=== PATIENT | male | born 1945 | race Caucasian/White ===

== ENCOUNTER 2017-01-31 05:29 | Day surgery (SDC) | payer MEDICARE, BC ==
[2017-01-31] MEDS ORDERED: fentaNYL 100 MCG/2 ML SDV IV ONE ×3 (05:30→06:28)
[2017-01-31] MEDS ORDERED: Midazolam 1 MG/ML 2 ML SDV IV ONE ×5 (05:30→06:31)
[2017-01-31] MEDS ORDERED: Dextrose 5%-0.45% NaCl 1,000 ML IV SCH (06:00)
[2017-01-31] MEDS ORDERED: Sodium Chloride 0.9% 10 ML Syringe FLUSH PRN (06:00)
[2017-01-31] MEDS ORDERED: Midazolam 1 MG/ML 2 ML SDV ONE (06:18)
[2017-01-31] MEDS ORDERED: fentaNYL 100 MCG/2 ML SDV ONE (06:18)
--- NOTE | 2017-01-31 07:25 | OR ---
DATE: PROCEDURE: Total colonoscopy, NBI, and cold snare polypectomy. INSTRUMENT USED: CF-H180AL Olympus video colonoscope. PREMEDICATIONS: Fentanyl 100 mcg intravenous, Versed 3 mg intravenous. Nasal 2 L O2 cannula. The procedure was done under pulse oximetry, BP recording, and conveyor monitor. INDICATION: The patient with previous colonic tubular adenoma. Surveillance colonoscopic examination is done for detection of any polypoid lesions and removal, endoscopic hemostasis therapy if needed. DESCRIPTION OF PROCEDURE: Initial rectal exam was unremarkable. Rigid anoscopy was normal. The colonoscope was passed with ease. Scattered diverticula were noted in the distal left colon. The colon was found to be redundant and tortuous. The scope was passed with ease up to the ileocecal area, photographs were taken of the cecum showing 5 mm sized benign-appearing sessile polyps, NBI views were obtained. Cold snare polypectomy was done, the tissues were retrieved and sent for histopathology. No bleeding was noted from any of the visualized areas at the completion of examination. No stricture. No vascular ectasia. No large isolated ulcerations seen. No evidence of diffuse inflammatory bowel disease in the form of friability, contact bleeding, or ulcerations. Probing the proximal sides of folds and flexures using adequate distention and clearing of the stool material, withdrawal of the scope was made, cecum to rectum, time over 6 minutes. No bleeding was noted from any of the visualized areas at the completion of examination. IMPRESSION: 1. Diverticulosis. 2. Cecal polyp. The patient tolerated the procedure well. [facility] /[id number]
[2017-01-31 10:52] VITALS: BP 103/39
== END 2017-01-31 09:03 | disposition home or self-care (01) ==
LOC: DL.ENDO 05:29
PROVIDERS: ATTEND Internal Medicine Gastroenterology
DX: Z12.11 Encounter for screening for malignant neoplasm of colon (principal); D12.0 Benign neoplasm of cecum; K57.30 Diverticulosis of large intestine without perforation or abscess without bleeding; Z85.038 Personal history of other malignant neoplasm of large intestine; I10 Essential (primary) hypertension; E66.9 Obesity, unspecified; I25.10 Atherosclerotic heart disease of native coronary artery without angina pectoris; E78.00 Pure hypercholesterolemia, unspecified; Z98.84 Bariatric surgery status; Z95.1 Presence of aortocoronary bypass graft
CPT/HCPCS: 45385; J2250; J3010; J7042; 88305

== ENCOUNTER 2024-09-28 14:04 | Emergency (ER) | payer MEDICARE, BC ==
[2024-09-28 14:55] LABS: BASOPHILS PERCENT AUTO 0.4 % (0.0-1.0); EOSINOPHILS PERCENT AUTO 0.8 % (1.0-3.0); HEMATOCRIT 35.9 % (40.0-54.0); HEMOGLOBIN 11.2 g/dL (14.0-18.0); LYMPHOCYTES PERCENT AUTO 10.8 % (20.5-50.1); MEAN CORPUSCULAR HEMOGLOBIN 25.2 pg (27.0-34.0); MEAN CORPUSCULAR HGB CONC 31.2 g/dL (33.0-35.0); MEAN CORPUSCULAR VOLUME 80.7 fL (80-100); MONOCYTES PERCENT AUTO 12.1 % (2-8); NEUTROPHILS PERCENT AUTO 75.9 % (42.2-75.2); PLATELET COUNT,PLT 287 10^3/uL (150-450); RED BLOOD CELL COUNT 4.45 10^6/uL (4.6-6.2); WHITE BLOOD CELL COUNT,WBC 10.3 10^3/uL (5.0-10.0)
[2024-09-28 15:08] LABS: ALANINE AMINOTRANSFERASE,ALT 17 U/L (16-63); ALBUMIN 3.1 g/dL (3.4-5.0); ALKALINE PHOSPHATASE 111 U/L (46-116); ANION GAP 14.3 mEq/L (7-13); ASPARTATE AMNIOTRANSFERASE,AST 13 U/L (15-37); BILIRUBIN TOTAL 0.5 mg/dL (0.2-1.0); BLOOD UREA NITROGEN,BUN 24 mg/dL (7-18); BUN/CREATININE RATIO 18.9 (No establ ref range); CALCIUM 9.4 mg/dL (8.5-10.1); CARBON DIOXIDE,CO2 27 mmol/L (21-32); CHLORIDE,CL 108 mmol/L (98-107); CREATININE 1.27 mg/dL (0.70-1.30); GLUCOSE RANDOM 102 mg/dL (70-99); MAGNESIUM 2.1 mg/dL (1.8-2.4); POTASSIUM,K 4.3 mmol/L (3.5-5.1); PROTEIN TOTAL,TP 7.1 g/dL (6.4-8.2); SODIUM,NA 145 mmol/L (136-145)
[2024-09-28 15:13] LABS: B-TYPE NATRIURETIC PEPTIDE,BNP 538 pg/ml (0-100)
[2024-09-28 15:14] LABS: A/G RATIO 0.78; ESTIMATED GFR 57 mL/min (>=60)
[2024-09-28] MEDS: Furosemide 40 MG/4 ML VIAL IVPUSH ONE (15:22)
[2024-09-28 15:25] VITALS: BP 169/79; PULSE 65
== END 2024-09-28 15:53 | disposition home or self-care (01) ==
LOC: DL.ED 14:04
DX: I11.0 Hypertensive heart disease with heart failure (principal); I50.9 Heart failure, unspecified; E78.00 Pure hypercholesterolemia, unspecified; Z79.899 Other long term (current) drug therapy
CPT/HCPCS: 36415; 80053; 83735; 83880; 84484; 85025; 93005; 96374; 99285; J1938

== ENCOUNTER 2024-10-07 14:18 | Inpatient (IN) | payer MEDICARE, BC ==
[2024-10-07 16:26] LABS: BASOPHILS PERCENT AUTO 0.5 % (0.0-1.0); HEMATOCRIT 33.8 % (40.0-54.0); HEMOGLOBIN 10.2 g/dL (14.0-18.0); LYMPHOCYTES PERCENT AUTO 13.3 % (20.5-50.1); MEAN CORPUSCULAR HEMOGLOBIN 24.2 pg (27.0-34.0); MEAN CORPUSCULAR HGB CONC 30.2 g/dL (33.0-35.0); MEAN CORPUSCULAR VOLUME 80.1 fL (80-100); MONOCYTES PERCENT AUTO 12.7 % (2-8); NEUTROPHILS PERCENT AUTO 72.5 % (42.2-75.2); PLATELET COUNT,PLT 375 10^3/uL (150-450); RED BLOOD CELL COUNT 4.22 10^6/uL (4.6-6.2); WHITE BLOOD CELL COUNT,WBC 8.7 10^3/uL (5.0-10.0)
[2024-10-07] MEDS: Furosemide 100 MG in Sodium Chloride 0.9% 90 ML IV SCH (16:33)
[2024-10-07] MEDS: Furosemide 40 MG/4 ML VIAL IVPUSH ONE (16:33)
[2024-10-07] MEDS: Nystatin Topical Powder 60 GM Bottle TOP SCH (16:37)
[2024-10-07 16:54] LABS: ANION GAP 11.9 mEq/L (7-13); BLOOD UREA NITROGEN,BUN 26 mg/dL (7-18); CALCIUM 9.3 mg/dL (8.5-10.1); CARBON DIOXIDE,CO2 31 mmol/L (21-32); CHLORIDE,CL 105 mmol/L (98-107); CREATININE 1.39 mg/dL (0.70-1.30); GLUCOSE RANDOM 128 mg/dL (70-99); POTASSIUM,K 3.9 mmol/L (3.5-5.1); SODIUM,NA 144 mmol/L (136-145)
[2024-10-07 16:56] LABS: PHOSPHORUS 3.2 mg/dL (2.6-4.7); T4 FREE 1.11 ng/dL (0.76-1.46); TSH ULTRASENSITIVE 2.3 uIU/mL (0.36-3.74)
[2024-10-07 16:59] LABS: ESTIMATED GFR 51 mL/min (>=60)
[2024-10-07 17:35] LABS: PERCENT FE SATURATION 3.8 % (20.0-50.0)
[2024-10-07 18:02] LABS: FOLIC ACID 19.4 ng/mL (8.6-58.9)
[2024-10-07] MEDS: Apixaban 5 MG Tab PO SCH ×2 (19:59→23:16)
[2024-10-07] MEDS: Potassium Chloride 10 MEQ Tab.ER PO SCH ×2 (19:59→23:17)
[2024-10-07] MEDS: Magnesium Oxide 400 MG Tab PO SCH ×2 (20:00→23:17)
[2024-10-07] MEDS: Metoprolol Tartrate 25 MG Tab PO SCH ×2 (20:00→23:17)
[2024-10-07] MEDS: Magnesium Sulfate 2 GM/50 mL 2 GM in Premix Bag 1 BAG IV ONE ×2 (20:01→20:02)
[2024-10-07] MEDS: Acetaminophen 325 MG Tab PO PRN (21:36)
[2024-10-08 06:39] LABS: BASOPHILS PERCENT AUTO 0.5 % (0.0-1.0); EOSINOPHILS PERCENT AUTO 1.6 % (1.0-3.0); HEMATOCRIT 33.4 % (40.0-54.0); HEMOGLOBIN 10.5 g/dL (14.0-18.0); LYMPHOCYTES PERCENT AUTO 11.8 % (20.5-50.1); MEAN CORPUSCULAR HEMOGLOBIN 24.9 pg (27.0-34.0); MEAN CORPUSCULAR HGB CONC 31.4 g/dL (33.0-35.0); MEAN CORPUSCULAR VOLUME 79.3 fL (80-100); MONOCYTES PERCENT AUTO 14.6 % (2-8); NEUTROPHILS PERCENT AUTO 71.5 % (42.2-75.2); PLATELET COUNT,PLT 390 10^3/uL (150-450); RED BLOOD CELL COUNT 4.21 10^6/uL (4.6-6.2)
[2024-10-08 07:00] LABS: ANION GAP 11.4 mEq/L (7-13); CREATININE 1.33 mg/dL (0.70-1.30); EST CRCL DRUG DOSING (CG) 47.18 mL/min; PHOSPHORUS 3.3 mg/dL (2.6-4.7); POTASSIUM,K 3.4 mmol/L (3.5-5.1)
[2024-10-08] MEDS: ferumoxytoL 510 MG in Sodium Chloride 0.9% 100 ML IV ONE (08:57)
[2024-10-08] MEDS: Potassium Chloride 20 MEQ in Premix Bag 1 BAG IV ONE (09:43)
[2024-10-08] MEDS: Potassium Chloride 10 MEQ Tab.ER PO SCH (17:08)
[2024-10-08] MEDS ORDERED: Furosemide 100 MG/10 ML SDV IVPUSH ONE (18:50)
[2024-10-08] MEDS: Melatonin 3 MG Tab PO SCH (21:31)
[2024-10-08] MEDS: Furosemide 100 MG/10 ML SDV IVPUSH ONE (21:32)
[2024-10-08] MEDS: Furosemide 100 MG in Sodium Chloride 0.9% 90 ML IV SCH (21:33)
[2024-10-09 06:25] LABS: BASOPHILS PERCENT AUTO 0.4 % (0.0-1.0); EOSINOPHILS PERCENT AUTO 2.1 % (1.0-3.0); HEMATOCRIT 34.8 % (40.0-54.0); HEMOGLOBIN 10.6 g/dL (14.0-18.0); LYMPHOCYTES PERCENT AUTO 13.7 % (20.5-50.1); MEAN CORPUSCULAR HEMOGLOBIN 24.1 pg (27.0-34.0); MEAN CORPUSCULAR HGB CONC 30.5 g/dL (33.0-35.0); MEAN CORPUSCULAR VOLUME 79.3 fL (80-100); MONOCYTES PERCENT AUTO 14.5 % (2-8); NEUTROPHILS PERCENT AUTO 69.3 % (42.2-75.2); PLATELET COUNT,PLT 388 10^3/uL (150-450); RED BLOOD CELL COUNT 4.39 10^6/uL (4.6-6.2); WHITE BLOOD CELL COUNT,WBC 7.6 10^3/uL (5.0-10.0)
[2024-10-09 06:50] LABS: ANION GAP 9.4 mEq/L (7-13); CALCIUM 9.2 mg/dL (8.5-10.1); CREATININE 1.29 mg/dL (0.70-1.30); EST CRCL DRUG DOSING (CG) 48.64 mL/min; POTASSIUM,K 3.4 mmol/L (3.5-5.1)
[2024-10-09] MEDS: Ferrous Sulfate 325 MG Tab PO SCH (08:11)
[2024-10-09] MEDS: Potassium Chloride 20 MEQ in Premix Bag 1 BAG IV ONE (10:28)
[2024-10-09] MEDS: Lactulose Soln 10 GM/15 ML 30 ML UD Cup PO ONE (17:12)
[2024-10-09] MEDS: Furosemide 40 MG/4 ML VIAL IVPUSH ONE (21:12)
[2024-10-09] MEDS: Furosemide 100 MG in Sodium Chloride 0.9% 90 ML IV SCH (21:35)
[2024-10-10 06:25] LABS: BASOPHILS PERCENT AUTO 0.4 % (0.0-1.0); EOSINOPHILS PERCENT AUTO 1.7 % (1.0-3.0); HEMATOCRIT 35.2 % (40.0-54.0); HEMOGLOBIN 10.5 g/dL (14.0-18.0); LYMPHOCYTES PERCENT AUTO 12.5 % (20.5-50.1); MEAN CORPUSCULAR HEMOGLOBIN 23.9 pg (27.0-34.0); MEAN CORPUSCULAR HGB CONC 29.8 g/dL (33.0-35.0); MEAN CORPUSCULAR VOLUME 80.2 fL (80-100); MONOCYTES PERCENT AUTO 14.2 % (2-8); NEUTROPHILS PERCENT AUTO 71.2 % (42.2-75.2); PLATELET COUNT,PLT 385 10^3/uL (150-450); RED BLOOD CELL COUNT 4.39 10^6/uL (4.6-6.2)
[2024-10-10 06:41] LABS: ANION GAP 6.7 mEq/L (7-13); CALCIUM 9.4 mg/dL (8.5-10.1); CREATININE 1.43 mg/dL (0.70-1.30); EST CRCL DRUG DOSING (CG) 43.88 mL/min; POTASSIUM,K 3.7 mmol/L (3.5-5.1)
[2024-10-10] MEDS: Pseudoephedrine 30 MG Tab PO PRN (13:09)
[2024-10-11 06:34] LABS: BASOPHILS PERCENT AUTO 0.3 % (0.0-1.0); EOSINOPHILS PERCENT AUTO 3.1 % (1.0-3.0); HEMOGLOBIN 10.4 g/dL (14.0-18.0); LYMPHOCYTES PERCENT AUTO 10.2 % (20.5-50.1); MEAN CORPUSCULAR HEMOGLOBIN 23.7 pg (27.0-34.0); MEAN CORPUSCULAR HGB CONC 29.7 g/dL (33.0-35.0); MEAN CORPUSCULAR VOLUME 79.9 fL (80-100); MONOCYTES PERCENT AUTO 14.5 % (2-8); NEUTROPHILS PERCENT AUTO 71.9 % (42.2-75.2); PLATELET COUNT,PLT 370 10^3/uL (150-450); RED BLOOD CELL COUNT 4.38 10^6/uL (4.6-6.2)
[2024-10-11 06:53] LABS: ANION GAP 7.7 mEq/L (7-13); CALCIUM 9.6 mg/dL (8.5-10.1); CREATININE 1.39 mg/dL (0.70-1.30); EST CRCL DRUG DOSING (CG) 45.14 mL/min; MAGNESIUM 2.3 mg/dL (1.8-2.4); POTASSIUM,K 3.7 mmol/L (3.5-5.1)
[2024-10-11] MEDS: Furosemide 80 MG Tab PO ONE (15:12)
[2024-10-12 06:42] LABS: BASOPHILS PERCENT AUTO 0.6 % (0.0-1.0); EOSINOPHILS PERCENT AUTO 5.6 % (1.0-3.0); HEMATOCRIT 36.4 % (40.0-54.0); HEMOGLOBIN 10.9 g/dL (14.0-18.0); LYMPHOCYTES PERCENT AUTO 11.4 % (20.5-50.1); MEAN CORPUSCULAR HEMOGLOBIN 24.5 pg (27.0-34.0); MEAN CORPUSCULAR HGB CONC 29.9 g/dL (33.0-35.0); MONOCYTES PERCENT AUTO 15.5 % (2-8); NEUTROPHILS PERCENT AUTO 66.9 % (42.2-75.2); PLATELET COUNT,PLT 373 10^3/uL (150-450); RED BLOOD CELL COUNT 4.44 10^6/uL (4.6-6.2); WHITE BLOOD CELL COUNT,WBC 8.9 10^3/uL (5.0-10.0)
[2024-10-12 07:14] LABS: ALBUMIN 2.8 g/dL (3.4-5.0); ANION GAP 8.7 mEq/L (7-13); BILIRUBIN TOTAL 0.7 mg/dL (0.2-1.0); BUN/CREATININE RATIO 20.6 (No establ ref range); CALCIUM 9.4 mg/dL (8.5-10.1); CREATININE 1.36 mg/dL (0.70-1.30); EST CRCL DRUG DOSING (CG) 46.14 mL/min; MAGNESIUM 2.4 mg/dL (1.8-2.4); POTASSIUM,K 3.7 mmol/L (3.5-5.1); PROTEIN TOTAL,TP 6.9 g/dL (6.4-8.2)
[2024-10-12 07:19] LABS: A/G RATIO 0.68
[2024-10-12] MEDS: Bumetanide 1 MG Tab PO SCH (08:52)
[2024-10-13 06:36] LABS: BASOPHILS PERCENT AUTO 0.4 % (0.0-1.0); EOSINOPHILS PERCENT AUTO 4.5 % (1.0-3.0); HEMATOCRIT 37.2 % (40.0-54.0); HEMOGLOBIN 11.5 g/dL (14.0-18.0); LYMPHOCYTES PERCENT AUTO 13.4 % (20.5-50.1); MEAN CORPUSCULAR HEMOGLOBIN 25.2 pg (27.0-34.0); MEAN CORPUSCULAR HGB CONC 30.9 g/dL (33.0-35.0); MEAN CORPUSCULAR VOLUME 81.4 fL (80-100); MONOCYTES PERCENT AUTO 14.8 % (2-8); NEUTROPHILS PERCENT AUTO 66.9 % (42.2-75.2); PLATELET COUNT,PLT 383 10^3/uL (150-450); RED BLOOD CELL COUNT 4.57 10^6/uL (4.6-6.2); WHITE BLOOD CELL COUNT,WBC 9.3 10^3/uL (5.0-10.0)
[2024-10-13 07:15] LABS: A/G RATIO 0.73; ANION GAP 9.7 mEq/L (7-13); BILIRUBIN TOTAL 0.7 mg/dL (0.2-1.0); BUN/CREATININE RATIO 22.5 (No establ ref range); CALCIUM 9.9 mg/dL (8.5-10.1); CREATININE 1.38 mg/dL (0.70-1.30); EST CRCL DRUG DOSING (CG) 45.47 mL/min; MAGNESIUM 2.4 mg/dL (1.8-2.4); POTASSIUM,K 3.7 mmol/L (3.5-5.1); PROTEIN TOTAL,TP 7.1 g/dL (6.4-8.2)
[2024-10-13] MEDS: Nystatin Topical Powder 60 GM Bottle TOP SCH (09:29)
[2024-10-13 15:06] VITALS: BP 130/59; PULSE 62
[2024-10-13] MEDS ORDERED: Apixaban 5 MG Tab PO SCH (21:00)
[2024-10-14] MEDS ORDERED: Metoprolol Succinate 25 MG Tab.ER PO SCH (09:00)
== END 2024-10-13 15:10 | disposition swing bed (61) | DRG 291 ==
LOC: DL.MS 14:21
PROVIDERS: ADMIT Internal Medicine; ATTEND Student in an Organized Health Care Education/Training Program
DX: I11.0 Hypertensive heart disease with heart failure (principal); J96.01 Acute respiratory failure with hypoxia; Z68.42 Body mass index [BMI] 45.0-49.9, adult; L97.821 Non-pressure chronic ulcer of other part of left lower leg limited to breakdown of skin; L97.811 Non-pressure chronic ulcer of other part of right lower leg limited to breakdown of skin; I48.91 Unspecified atrial fibrillation; I27.20 Pulmonary hypertension, unspecified; H91.90 Unspecified hearing loss, unspecified ear; H54.7 Unspecified visual loss; E78.00 Pure hypercholesterolemia, unspecified; G47.33 Obstructive sleep apnea (adult) (pediatric); E66.01 Morbid (severe) obesity due to excess calories; E07.9 Disorder of thyroid, unspecified; E87.6 Hypokalemia; D50.9 Iron deficiency anemia, unspecified; I50.9 Heart failure, unspecified; Z79.01 Long term (current) use of anticoagulants; Z98.890 Other specified postprocedural states; Z90.49 Acquired absence of other specified parts of digestive tract; Z79.899 Other long term (current) drug therapy; Z85.46 Personal history of malignant neoplasm of prostate; Z95.5 Presence of coronary angioplasty implant and graft; Z95.0 Presence of cardiac pacemaker
CPT/HCPCS: 36415; 51702; 71045; 80048; 80053; 82272; 82607; 82728; 82746; 83540; 83550; 83735; 84100; 84439; 84443; 84484; 85025; 93005; 93306; 97110-GP; 97161-GP; 97530-GP; 99223; 99232; 99233; 99238; A9270-GY; J1938; J3475; J3480; J3490; Q0138

== ENCOUNTER 2024-10-13 10:06 | Inpatient (IN) | payer MEDICARE, BC ==
[2024-10-13] MEDS: Bumetanide 1 MG Tab PO SCH (16:47)
[2024-10-13] MEDS: Nystatin Topical Powder 60 GM Bottle TOP SCH (16:49)
[2024-10-13] MEDS: Magnesium Oxide 400 MG Tab PO SCH (18:20)
[2024-10-13] MEDS: Potassium Chloride 10 MEQ Tab.ER PO SCH (18:20)
[2024-10-13] MEDS: Melatonin 3 MG Tab PO SCH (21:16)
[2024-10-13] MEDS: Acetaminophen 325 MG Tab PO PRN (21:17)
[2024-10-14 06:30] LABS: BASOPHILS PERCENT AUTO 0.5 % (0.0-1.0); EOSINOPHILS PERCENT AUTO 4.2 % (1.0-3.0); HEMOGLOBIN 12.3 g/dL (14.0-18.0); LYMPHOCYTES PERCENT AUTO 15.2 % (20.5-50.1); MEAN CORPUSCULAR HEMOGLOBIN 25.5 pg (27.0-34.0); MEAN CORPUSCULAR HGB CONC 31.5 g/dL (33.0-35.0); MEAN CORPUSCULAR VOLUME 80.9 fL (80-100); MONOCYTES PERCENT AUTO 11.9 % (2-8); NEUTROPHILS PERCENT AUTO 68.2 % (42.2-75.2); PLATELET COUNT,PLT 393 10^3/uL (150-450); RED BLOOD CELL COUNT 4.82 10^6/uL (4.6-6.2); WHITE BLOOD CELL COUNT,WBC 8.4 10^3/uL (5.0-10.0)
[2024-10-14 06:47] LABS: ALBUMIN 3.2 g/dL (3.4-5.0); ANION GAP 8.9 mEq/L (7-13); BILIRUBIN TOTAL 0.7 mg/dL (0.2-1.0); BUN/CREATININE RATIO 21.1 (No establ ref range); CALCIUM 10.1 mg/dL (8.5-10.1); CREATININE 1.42 mg/dL (0.70-1.30); EST CRCL DRUG DOSING (CG) 44.19 mL/min; MAGNESIUM 2.4 mg/dL (1.8-2.4); POTASSIUM,K 3.9 mmol/L (3.5-5.1); PROTEIN TOTAL,TP 7.5 g/dL (6.4-8.2)
[2024-10-14 06:54] LABS: A/G RATIO 0.74
[2024-10-14] MEDS ORDERED: Metoprolol Tartrate 25 MG Tab PO SCH (09:00)
[2024-10-14] MEDS: Apixaban 5 MG Tab PO SCH (10:27)
[2024-10-14] MEDS: Ferrous Sulfate 325 MG Tab PO SCH (10:28)
[2024-10-14] MEDS: Metoprolol Succinate 25 MG Tab.ER PO SCH (10:28)
[2024-10-14] MEDS: Bumetanide 1 MG Tab PO SCH (10:28)
[2024-10-15 07:04] LABS: BASOPHILS PERCENT AUTO 0.6 % (0.0-1.0); EOSINOPHILS PERCENT AUTO 4.2 % (1.0-3.0); HEMATOCRIT 39.2 % (40.0-54.0); HEMOGLOBIN 12.1 g/dL (14.0-18.0); LYMPHOCYTES PERCENT AUTO 18.1 % (20.5-50.1); MEAN CORPUSCULAR HGB CONC 30.9 g/dL (33.0-35.0); MONOCYTES PERCENT AUTO 13.9 % (2-8); NEUTROPHILS PERCENT AUTO 63.2 % (42.2-75.2); PLATELET COUNT,PLT 401 10^3/uL (150-450); RED BLOOD CELL COUNT 4.84 10^6/uL (4.6-6.2); WHITE BLOOD CELL COUNT,WBC 7.1 10^3/uL (5.0-10.0)
[2024-10-15 07:27] LABS: ALBUMIN 3.1 g/dL (3.4-5.0); ANION GAP 9.9 mEq/L (7-13); BILIRUBIN TOTAL 0.6 mg/dL (0.2-1.0); BUN/CREATININE RATIO 22.6 (No establ ref range); CALCIUM 10.1 mg/dL (8.5-10.1); CREATININE 1.46 mg/dL (0.70-1.30); EST CRCL DRUG DOSING (CG) 42.98 mL/min; MAGNESIUM 2.5 mg/dL (1.8-2.4); POTASSIUM,K 3.9 mmol/L (3.5-5.1); PROTEIN TOTAL,TP 7.3 g/dL (6.4-8.2)
[2024-10-15 07:33] LABS: A/G RATIO 0.74
[2024-10-15] MEDS: Bumetanide 1 MG Tab PO SCH (09:26)
[2024-10-15] MEDS: Pseudoephedrine 30 MG Tab PO PRN (16:24)
[2024-10-16 06:13] LABS: HEMATOCRIT 40.4 % (40.0-54.0); HEMOGLOBIN 12.4 g/dL (14.0-18.0); MEAN CORPUSCULAR HEMOGLOBIN 24.8 pg (27.0-34.0); MEAN CORPUSCULAR HGB CONC 30.7 g/dL (33.0-35.0); PLATELET COUNT,PLT 402 10^3/uL (150-450); RED BLOOD CELL COUNT 4.99 10^6/uL (4.6-6.2); WHITE BLOOD CELL COUNT,WBC 7.6 10^3/uL (5.0-10.0)
[2024-10-16 06:38] LABS: BASOPHILS PERCENT AUTO 0.5 % (0.0-1.0); EOSINOPHILS PERCENT AUTO 5.8 % (1.0-3.0); LYMPHOCYTES PERCENT AUTO 21.5 % (20.5-50.1); MONOCYTES PERCENT AUTO 11.5 % (2-8); NEUTROPHILS PERCENT AUTO 60.7 % (42.2-75.2)
[2024-10-16 06:41] LABS: ALBUMIN 3.2 g/dL (3.4-5.0); BILIRUBIN TOTAL 0.6 mg/dL (0.2-1.0); BUN/CREATININE RATIO 25.5 (No establ ref range); CREATININE 1.45 mg/dL (0.70-1.30); EST CRCL DRUG DOSING (CG) 43.28 mL/min; MAGNESIUM 2.5 mg/dL (1.8-2.4); PROTEIN TOTAL,TP 7.4 g/dL (6.4-8.2)
[2024-10-16 06:48] LABS: A/G RATIO 0.76
[2024-10-16 07:08] LABS: EOSINOPHILS PERCENT MAN 11 % (1-3); LYMPHOCYTES PERCENT MAN 21 % (20-50); MONOCYTES PERCENT MAN 6 % (2-8); SEG NEUTROPHILS PERCENT MAN 62 % (42-75)
[2024-10-16] MEDS: Bumetanide 1 MG Tab PO SCH (09:37)
[2024-10-16] MEDS: Polyethylene Glycol 3350 Powder 17 GM Packet PO SCH (16:43)
[2024-10-16] MEDS: Docusate Sodium 100 MG Cap PO SCH (16:43)
[2024-10-16] MEDS: Sennosides/Docusate Sodium 50-8.6 MG Tab PO SCH (20:45)
[2024-10-17 06:40] LABS: BASOPHILS PERCENT AUTO 0.6 % (0.0-1.0); EOSINOPHILS PERCENT AUTO 5.6 % (1.0-3.0); HEMATOCRIT 41.4 % (40.0-54.0); HEMOGLOBIN 12.8 g/dL (14.0-18.0); LYMPHOCYTES PERCENT AUTO 21.7 % (20.5-50.1); MEAN CORPUSCULAR HEMOGLOBIN 25.1 pg (27.0-34.0); MEAN CORPUSCULAR HGB CONC 30.9 g/dL (33.0-35.0); MEAN CORPUSCULAR VOLUME 81.2 fL (80-100); MONOCYTES PERCENT AUTO 11.5 % (2-8); NEUTROPHILS PERCENT AUTO 60.6 % (42.2-75.2); PLATELET COUNT,PLT 407 10^3/uL (150-450); WHITE BLOOD CELL COUNT,WBC 6.8 10^3/uL (5.0-10.0)
[2024-10-17 06:52] LABS: ALBUMIN 3.2 g/dL (3.4-5.0); ANION GAP 11.2 mEq/L (7-13); BILIRUBIN TOTAL 0.6 mg/dL (0.2-1.0); BUN/CREATININE RATIO 24.6 (No establ ref range); CREATININE 1.42 mg/dL (0.70-1.30); EST CRCL DRUG DOSING (CG) 44.19 mL/min; MAGNESIUM 2.3 mg/dL (1.8-2.4); POTASSIUM,K 4.2 mmol/L (3.5-5.1); PROTEIN TOTAL,TP 7.3 g/dL (6.4-8.2)
[2024-10-17 06:57] LABS: A/G RATIO 0.78
[2024-10-17] MEDS: Bisacodyl 5 MG Tab PO ONE (09:53)
[2024-10-17] MEDS: Bisacodyl 5 MG Tab ONE (09:59)
[2024-10-17] MEDS: Mineral Oil/Petrolatum Oint 100 GM OINT TOP SCH (19:05)
[2024-10-18 06:45] LABS: BASOPHILS PERCENT AUTO 0.5 % (0.0-1.0); EOSINOPHILS PERCENT AUTO 4.6 % (1.0-3.0); HEMATOCRIT 43.1 % (40.0-54.0); HEMOGLOBIN 12.8 g/dL (14.0-18.0); MEAN CORPUSCULAR HEMOGLOBIN 24.1 pg (27.0-34.0); MEAN CORPUSCULAR HGB CONC 29.7 g/dL (33.0-35.0); MONOCYTES PERCENT AUTO 11.5 % (2-8); NEUTROPHILS PERCENT AUTO 62.4 % (42.2-75.2); PLATELET COUNT,PLT 434 10^3/uL (150-450); RED BLOOD CELL COUNT 5.32 10^6/uL (4.6-6.2); WHITE BLOOD CELL COUNT,WBC 7.4 10^3/uL (5.0-10.0)
[2024-10-18 07:17] LABS: A/G RATIO 0.8; ALBUMIN 3.4 g/dL (3.4-5.0); ANION GAP 9.5 mEq/L (7-13); BILIRUBIN TOTAL 0.6 mg/dL (0.2-1.0); BUN/CREATININE RATIO 23.4 (No establ ref range); CALCIUM 10.1 mg/dL (8.5-10.1); CREATININE 1.54 mg/dL (0.70-1.30); EST CRCL DRUG DOSING (CG) 40.75 mL/min; MAGNESIUM 2.4 mg/dL (1.8-2.4); POTASSIUM,K 4.5 mmol/L (3.5-5.1); PROTEIN TOTAL,TP 7.7 g/dL (6.4-8.2)
[2024-10-18 07:40] VITALS: BP 123/75; PULSE 60
== END 2024-10-18 13:47 | disposition home or self-care (01) | DRG 948 ==
LOC: DL.MS 15:10
PROVIDERS: ADMIT Student in an Organized Health Care Education/Training Program; ATTEND Student in an Organized Health Care Education/Training Program
DX: R53.81 Other malaise (principal); I13.0 Hypertensive heart and chronic kidney disease with heart failure and stage 1 through stage 4 chronic kidney disease, or unspecified chronic kidney disease; E78.5 Hyperlipidemia, unspecified; I25.10 Atherosclerotic heart disease of native coronary artery without angina pectoris; E88.09 Other disorders of plasma-protein metabolism, not elsewhere classified; N18.9 Chronic kidney disease, unspecified; G47.33 Obstructive sleep apnea (adult) (pediatric); H91.90 Unspecified hearing loss, unspecified ear; E66.01 Morbid (severe) obesity due to excess calories; D50.9 Iron deficiency anemia, unspecified; H54.7 Unspecified visual loss; I48.91 Unspecified atrial fibrillation; E78.00 Pure hypercholesterolemia, unspecified; N42.9 Disorder of prostate, unspecified; Z85.46 Personal history of malignant neoplasm of prostate; Z90.49 Acquired absence of other specified parts of digestive tract; Z95.0 Presence of cardiac pacemaker; Z79.01 Long term (current) use of anticoagulants; Z95.5 Presence of coronary angioplasty implant and graft; Z68.37 Body mass index [BMI] 37.0-37.9, adult; Z79.899 Other long term (current) drug therapy
CPT/HCPCS: 36415; 80053; 83735; 85025; 97161-GP; 97530-GP; 99305; 99315; A9270-GY; J3490